=== PATIENT | female | born 1975 | race Caucasian/White ===

== ENCOUNTER 2016-11-25 11:30 | Emergency (ER) | payer BC, OTHER ==
--- NOTE | 2016-11-25 11:32 | UC ---
Throat Pain/Nasal [place] HPI - HPI Summary HPI Summary: ST, facial pressure, nasal congestion, body aches, nonproductive cough x2 days. Had a flu shot. - History of Current Complaint Stated Complaint: THROAT Time Seen by Provider: 11/25/16 11:32 Hx Obtained From: Patient Hx Last Menstrual Period: 10/08/14 ?: No Onset/Duration: Sudden Onset, Lasting Days, Still Present Severity: Moderate Pain Intensity: 3 Pain Scale Used: 0-10 Numeric Cough: Nonproductive Associated Signs & Symptoms: Positive: Dysphagia, Sinus Discomfort, Nasal Discharge - Epiglottits Risk Factors Epiglottis Risk Factors: Negative - Allergies/Home Medications Allergies/Adverse Reactions: Allergies Allergy/AdvReac Type Severity Reaction Status Date / Time Sulfa Antibiotics Allergy Unknown Verified 11/25/16 11:42 Reaction Details Home Medications: Home Medications Naproxen Sodium [Naproxen Sodium 220 mg] 220 mg PO ONCE PRN 11/25/16 [History Confirmed 11/25/16] PMH/Surg Hx/FS Hx/Imm Hx Previously Healthy: No GI/ History Of: Reports: Kidney Stones - Surgical History Surgical History: None - Family History Known Family History: Positive: Hypertension - Social History Occupation: Employed Full-time Lives: With Family Alcohol Use: Rare Substance Use Type: None Smoking Status (MU): Never Smoked Tobacco Review of Systems Constitutional: Negative Skin: Negative Eyes: Negative ENT: Sore Throat Respiratory: Cough Cardiovascular: Negative Gastrointestinal: Negative Genitourinary: Negative Motor: Negative Neurovascular: Negative Musculoskeletal: Myalgia Neurological: Headache Psychological: Negative All Other Systems Reviewed And Are Negative: Yes Physical Exam Triage Information Reviewed: Yes Appearance: Well-Nourished, Ill-Appearing, Pain Distress Vital Signs Reviewed: Yes Eyes: Positive: Conjunctiva Clear ENT: Positive: Hearing grossly normal, Pharyngeal erythema, Nasal congestion, TM dull - but still faint light reflex bilat. Negative: Tonsillar swelling, Tonsillar exudate, Muffled/hoarse voice Neck: Positive: Supple, Nontender, No Lymphadenopathy Respiratory: Positive: Lungs clear, Normal breath sounds, No respiratory distress Cardiovascular: Positive: RRR, No Murmur, Pulses Normal, Brisk Capillary Refill Musculoskeletal: Positive: Strength Intact, ROM Intact Neurological: Positive: Alert, Muscle Tone Normal Psychological Exam: Normal Skin Exam: Normal Throat Pain/Nasal Course/Dx - Course Course Of Treatment: rapid strep neg. rapid influenza neg for both A and B - Differential Dx/Diagnosis Provider Diagnoses: acute sinusitis Discharge - Discharge Plan Condition: Stable Disposition: HOME Prescriptions: Amoxicillin (*) [Amoxicillin 875 MG (*)] 875 mg PO BID #20 tab Fluticasone NASAL SPRAY 50MCG* [Flonase NASAL SPRAY 50MCG*] 2 spray BOTH NARES DAILY #1 btl Patient Education Materials: Sinusitis (ED) Referrals: Destiny Tolliver MD [Primary Care Provider] - 4 Days
[2016-11-25 12:01] VITALS: BP 117/74
== END 2016-11-25 12:21 | disposition home or self-care (01) ==
LOC: UCCORT 11:30
DX: J01.90 Acute sinusitis, unspecified (principal); Z87.442 Personal history of urinary calculi; Z88.2 Allergy status to sulfonamides
CPT/HCPCS: 87502; 87651; 99212; G0463